=== PATIENT | female | born 1980 | race Caucasian/White ===

== ENCOUNTER 2020-07-21 19:50 | Emergency (ER) | payer OTHER ==
[~2020-07-21 19:50] MED LIST: IBUPROFEN800 MG PO; ROBAXIN750 MG PO
[2020-07-21] MEDS ORDERED: KEFLEX250 MG PO (20:17)
[2020-07-22] MEDS ORDERED: AUGMENTIN 875-1 EACH PO (20:26)
== END 2020-07-21 20:55 | disposition home or self-care (01) ==
LOC: FER 19:50
DX: N64.4 Mastodynia (principal); F17.200 Nicotine dependence, unspecified, uncomplicated; Z91.040 Latex allergy status

== ENCOUNTER 2020-07-22 17:50 | Emergency (ER) | payer OTHER ==
[~2020-07-22 17:50] MED LIST changes: +KEFLEX250 MG PO
[2020-07-22 19:03] LABS: BASOPHIL 0.3 % (0-2); EOSINOPHIL 2.7 % (0-5); HCT 41.8 % (37.0-47.0); HGB 14.3 g/dl (12.5-16.0); LYMPHOCYTE 14.7 % (15-48); MCH 28.3 pg (25.0-31.0); MCHC 34.2 g/dL (32.0-36.0); MCV 82.8 fL (78.0-100.0); MONOCYTE 7.9 % (0-12); MPV 9.7 fL (6.0-9.5); NEUTROPHIL 72.8 % (41-80); NRBC 0; PLT 304 K/uL (150-400); RBC 5.05 M/uL (4.20-5.40); RDW 15.2 % (11.5-14.0); WBC 12.3 K/uL (4.0-10.5)
[2020-07-22 19:56] LABS: CREATININE 0.55 mg/dL (0.51-0.95); POTASSIUM 2.7 mmol/L (3.5-5.1)
[2020-07-22] MEDS ORDERED: AUGMENTIN 875-1 EACH PO (20:26)
== END 2020-07-22 20:44 | disposition home or self-care (01) ==
LOC: FER 17:50
PROVIDERS: Nurse Practitioner Family
DX: N61.0 Mastitis without abscess (principal); Z91.040 Latex allergy status; Z91.048 Other nonmedicinal substance allergy status
CPT/HCPCS: 36415; 80048; 83605; 85025; J1885; J2405; J7030